=== PATIENT | female | born 1970 | race Two or more races ===

== ENCOUNTER 2021-10-01 17:49 | Emergency (ER) | payer OTHER ==
[~2021-10-01] VITALS: Ht 152.4 cm; Wt 88.5 kg
[2021-10-01] MEDS ORDERED: SIMBALTA (18:30)
[2021-10-01] MEDS ORDERED: CATAFLAN (18:31)
[2021-10-01] MEDS ORDERED: NEURONTIN600 M1 PO (18:31)
== END 2021-10-01 19:59 | disposition home or self-care (01) ==
LOC: ER 17:49
DX: U07.1 COVID-19 (principal)